=== PATIENT | female | born 1985 | race African-American/Black ===

== ENCOUNTER 2017-07-16 20:51 | Emergency (ER) | payer OTHER ==
[~2017-07-16] VITALS: Ht 160 cm; Wt 77.7 kg
[2017-07-16 20:55] VITALS: BP 123/78; PULSE 99; RESP 18; O2SAT 92
--- NOTE | 2017-07-16 21:27 | ED.REPORT ---
HPI-General Illness Date of Service Jul 16, 2017 ED Provider: Doc,Ed MD Nursing Notes Stated Complaint: DIZZY,DEHYDRATED,DISORIENTED Chief Complaint: General Complaint Allergies: Coded Allergies: ibuprofen (Verified Allergy, Intermediate, SWELLING AND HIVES, 07/16/17) General Time Seen by MD: 21:27 Physical Exam Vital Signs Vital Signs Date Time Temp Pulse Resp B/P Pulse Ox O2 Delivery O2 Flow Rate FiO2 07/16/17 20:55 36.7 99 18 123/78 92 Room Air Interpretation & Diagnostics Lab Results Interpretation Result Diagram: 07/16/17 2232 Test 07/16/17 22:28 07/16/17 22:32 Urine Color Yellow (YELLOW) Urine Appearance Slightly cloudy Urine pH 7.0 (5.0-8.0) Urine Specific [place] 1.020 (1.003-1.035) Urine Protein Negativemg/dL (NEG,TRACE) Urine Glucose (UA) Negativemg/dL (NEGATIVE) Urine Ketones Negativemg/dL (NEGATIVE) Urine Occult Blood Trace (NEGATIVE) Urine Nitrite Negative (NEGATIVE) Urine Bilirubin Negative (NEGATIVE) Urine Urobilinogen 1.0mg/dL (NORMAL) Urine Leukocyte Esterase Negative (NEGATIVE) Urine RBC 3-10/hpf (0-2) Urine WBC 6-10/hpf (0-5) Urine Epithelial Cells Many/hpf (NONE-MOD) Urine Crystals None seen (NONE SEEN) Urine Bacteria Moderate/hpf (NONE-FEW) Urine Hyaline Casts None/lpf (NONE) Urine Granular Casts None seen (NONE SEEN) Urine Waxy Casts None seen (NONE SEEN) Urine Red Blood Cell Casts None seen (NONE SEEN) Urine White Blood Cell Casts None seen (NONE SEEN) Urine Mucus Present (None Seen) Urine Trichomonas None seen (NONE SEEN) Urine Yeast None (NONE SEEN) Urinalysis Comment None Urine Culture Reflexed Indicated White Blood Count 12.9th/mm3 (3.8-10.1) Red Blood Count 4.43mil/mm3 (3.90-5.20) Hemoglobin 12.3g/dL (12.0-15.6) Hematocrit 37.6% (35.0-46.0) Mean Corpuscular Volume 84.9fL (81-100) Mean Corpuscular Hemoglobin 27.8pg (27.0-35.0) Mean Corpuscular Hemoglobin Concent 32.7% (32.0-37.0) Red Cell Distribution Width 13.8% (12.3-15.4) Platelet Count 329bil/L (150-400) Neutrophils (%) (Auto) 65.6% (40-74) Lymphocytes (%) (Auto) 24.3% (14-46) Monocytes (%) (Auto) 7.7% (4-12) Eosinophils (%) (Auto) 1.6% (0-5) Basophils (%) (Auto) 0.5% (0-3) Hold Call Top Tube Received (Received) Discharge & Departure Referrals: Magaly Ferreira PA-C (PCP) Quang Kaba DO Jul 16, 2017 21:27
--- NOTE | 2017-07-16 21:27 | ED.REPORT ---
HPI-General Illness Date of Service Jul 16, 2017 ED Provider: Dr. Roth The pt is a 31 y/o female with no pertinent hx who presents to the ED complaining of dizziness, onset 20 minutes ago. Associated sx include spatial disorientation and palpitations. She associates her sx with dehydration as she had been under the sun most of the day and had not been taking enough fluids. She felt slightly better after drinking some fluids. She denies nausea, vomiting , fever, chest pain, lower extremity edema, abdominal pain, dysuria, urinary frequency, urinary urgency, and . Nursing Notes Stated Complaint: DIZZY,DEHYDRATED,DISORIENTED Chief Complaint: General Complaint Nursing Notes Reviewed: Yes Allergies: Coded Allergies: ibuprofen (Verified Allergy, Intermediate, SWELLING AND HIVES, 07/16/17) Scheduled Sulfamethoxazole/Trimeth 800-160 mg (Bactrim DS) 1 Each Tablet 1 TABLET PO BID General Time Seen by MD: 21:27 Chief Complaint Dizziness Hx Obtained From: Patient Arrived By: Walk-in Sudden in Onset?: Yes Onset Occurred: 16 - 30 minutes ago Symptom Duration: Since onset Severity: Current: No pain currently Severity: Maximum: No pain Recent Healthcare: No recent doctor visit Similar Sx Previous: No Past Medical History Past Medical History none reported Past Surgical History none reported Smoking History Unknown if Ever Smoker Social History Other Social History: Good social support Ambulatory Status Independent Review of Systems Reports: spatial disorientation Full Review of Systems Constitutional: Denies: Fever Cardiovascular: Reports: Palpitations, Denies: Chest pain, Edema GI: Denies: Abdominal pain, Nausea, Vomiting Female: Denies: Dysuria, , Urinary frequency, Urinary urgency Neurologic: Reports: Dizziness Complete sys rev & neg: except as marked. Physical Exam Vital Signs Vital Signs Date Time Temp Pulse Resp B/P Pulse Ox O2 Delivery O2 Flow Rate FiO2 07/16/17 23:44 16 105/73 95 Room Air 07/16/17 20:55 36.7 99 18 123/78 92 Room Air Initial VS: Reviewed Head / Eyes: Atraumatic, Normocephalic Neck: Supple, Non-tender, Full range of motion Respiratory: Breath sounds normal, Clear to auscultation, No respiratory distress Cardiovascular: Regular rate & rhythm, Heart sounds normal, Intact distal pulses Abdomen / GI: Soft, Non-tender, No guarding, No rebound, No distention Extremities: Vascular intact, Neuro intact, No swelling, No tenderness Neurologic: Alert, Oriented, Nonfocal General/Constitutional: Awake, Alert, No acute distress, Well appearing, Well developed, Well hydrated, Cooperative Skin: Atraumatic, Color NL, No rash, Warm, Dry, Intact, Turgor NL, No swelling There is no evidence of dehydration. Interpretation & Diagnostics Lab Results Interpretation Result Diagram: 07/16/17223107/16/172231 Test 07/16/17 22:28 07/16/17 22:32 Urine Color Yellow (YELLOW) Urine Appearance Slightly cloudy Urine pH 7.0 (5.0-8.0) Urine Specific [place] 1.020 (1.003-1.035) Urine Protein Negativemg/dL (NEG,TRACE) Urine Glucose (UA) Negativemg/dL (NEGATIVE) Urine Ketones Negativemg/dL (NEGATIVE) Urine Occult Blood Trace (NEGATIVE) Urine Nitrite Negative (NEGATIVE) Urine Bilirubin Negative (NEGATIVE) Urine Urobilinogen 1.0mg/dL (NORMAL) Urine Leukocyte Esterase Negative (NEGATIVE) Urine RBC 3-10/hpf (0-2) Urine WBC 6-10/hpf (0-5) Urine Epithelial Cells Many/hpf (NONE-MOD) Urine Crystals None seen (NONE SEEN) Urine Bacteria Moderate/hpf (NONE-FEW) Urine Hyaline Casts None/lpf (NONE) Urine Granular Casts None seen (NONE SEEN) Urine Waxy Casts None seen (NONE SEEN) Urine Red Blood Cell Casts None seen (NONE SEEN) Urine White Blood Cell Casts None seen (NONE SEEN) Urine Mucus Present (None Seen) Urine Trichomonas None seen (NONE SEEN) Urine Yeast None (NONE SEEN) Urinalysis Comment None Urine Culture Reflexed Indicated White Blood Count 12.9th/mm3 (3.8-10.1) Red Blood Count 4.43mil/mm3 (3.90-5.20) Hemoglobin 12.3g/dL (12.0-15.6) Hematocrit 37.6% (35.0-46.0) Mean Corpuscular Volume 84.9fL (81-100) Mean Corpuscular Hemoglobin 27.8pg (27.0-35.0) Mean Corpuscular Hemoglobin Concent 32.7% (32.0-37.0) Red Cell Distribution Width 13.8% (12.3-15.4) Platelet Count 329bil/L (150-400) Neutrophils (%) (Auto) 65.6% (40-74) Lymphocytes (%) (Auto) 24.3% (14-46) Monocytes (%) (Auto) 7.7% (4-12) Eosinophils (%) (Auto) 1.6% (0-5) Basophils (%) (Auto) 0.5% (0-3) Sodium Level 139mEq/L (134-144) Potassium Level 4.2mEq/L (3.5-5.2) Chloride Level 100mEq/L (97-108) Carbon Dioxide Level 22mmol/L (18-29) Blood Urea Nitrogen 12mg/dL (6-20) Creatinine 0.69mg/dL (0.57-1.00) Estimat Glomerular Filtration Rate 129mL/min (>59) Glucose Level 78mg/dL (60-99) Calcium Level 9.7mg/dL (8.5-10.1) Magnesium Level 1.8mg/dL (1.6-2.6) Total Bilirubin 0.2mg/dL (0.0-1.2) Aspartate Amino Transf (AST/SGOT) 19U/L (0-50) Alanine Aminotransferase (ALT/SGPT) 19U/L (0-32) Alkaline Phosphatase 78U/L (25-150) Total Protein 7.9g/dL (6.4-8.4) Albumin 4.3g/dL (3.4-5.0) Hold Call Top Tube Received (Received) ECG Interpretation ECG Interpretation: Normal sinus rhythm. Rate 77. Time: 21:46 Interpreted by: ED physician Normal ECG Interpretation: Normal ECG w/ rate of... (77) Re-Eval/Medical Decision Med Decision/Clinical Course 31-year-old with some mild dizziness and mild dehydration after working out in the sun today. Decreased by mouth intake over the day with some improvement after drinking some water. Unable get an IV here, and she is now able to take by mouth adequately. Labs are reassuring. Discharged home in stable condition for oral rehydration with electrolyte solution. Source of Hx: Old records Time of Eval: 23:32 Re-Evaluation/Progress Note: Rechecked pt. Discussed lab results, diagnosis and plan to discharge. Pt understands and agrees with the plan. F/U instruction and RTER warning given. All questions addressed. Counseled Regarding: Diagnosis, Lab results, Need for follow-up, When/why to return to ED Discharge & Departure Primary Impression: Dizziness Additional Impression: Urinary tract infection Urinary tract infection type: site unspecified Hematuria presence: without hematuria Qualified Code: N39.0 - Urinary tract infection, site not specified Disposition: Home Discharge Condition All VS Reviewed: Yes Condition: Stable Patient Instructions: Dehydration (ED), Urinary Tract Infection in Women (ED) Additional Instructions: It is important to stay hydrated during workouts, and during exposure to heat. Electrolyte replacement solutions such as Powerade or Gatorade or Nuun, or other similar solutions provide needed bicarbonate, potassium, and sodium. Follow-up with your doctor in the office. Return if any immediate issues over the long weekend. You have an incidental urinary tract infection. Begin Bactrim twice daily for seven days. Referrals: Magaly Ferreira PA-C (PCP) Scribe Attestation Portions of this note were transcribed by Tomás Islas. I,, personally performed the history,physical exam and medical decision-making;I reviewed and confirmed the accuracy of the information in the transcribed note. Signed by Siomara Cruz. 07/16/17 copies to: Magaly Ferreira PA-C, Christopher W MD Jul 16, 2017 21:27 Tomás Islas Jul 16, 2017 21:35
[2017-07-16] MEDS ORDERED: 0.9% Sodium Chloride 1,000 ML IV ONE (21:33)
[2017-07-16 22:39] LABS: APPEARANCE,URINE SLIGHTLY CLOUDY (CLEAR,HAZY); COLOR,URINE YELLOW (YELLOW); OCCULT BLOOD,URINE TRACE (NEGATIVE)
[2017-07-16 22:50] LABS: Mean Corpuscular Hemoglobin 27.8 pg (27.0-35.0); Mean Corpuscular Volume 84.9 fL (81-100); NEUTROPHILS % (AUTO) 65.6 % (40-74); Platelet Count 329 bil/L (150-400)
[2017-07-16 22:51] LABS: BASOPHILS % (AUTO) 0.5 % (0-3); EOSINOPHILS % (AUTO) 1.6 % (0-5); MONOCYTES % (AUTO) 7.7 % (4-12)
[2017-07-16 23:25] LABS: Magnesium 1.8 mg/dL (1.6-2.6)
[2017-07-16] MEDS ORDERED: Trimethoprim-Sulfa 160 mg-800 mg Tablet PO ONE (23:30)
[2017-07-16] MEDS ORDERED: SULF1TAB7 PO (23:30)
[2017-07-16 23:44] VITALS: BP 105/73; RESP 16; O2SAT 95
== END 2017-07-16 23:40 | disposition home or self-care (01) ==
LOC: SED 20:51
DX: R42 Dizziness and giddiness (principal); N39.0 Urinary tract infection, site not specified; Z88.6 Allergy status to analgesic agent